=== PATIENT | female | born 1955 | race Caucasian/White ===

== ENCOUNTER → 2017-11-10 | Outpatient (CLI) | payer MEDICARE, MEDICAID ==
--- NOTE | 2017-11-11 08:23 | Diagnostic Imaging Report ---
Lumbar spine 3 views Indication: pain Comparison: none Findings: Advanced degenerative changes are noted with multilevel marginal osteophytic spurring and multilevel disc space loss of height, greatest at L5/S1 with moderate disc space loss of height at this level. No acute compression fracture or subluxation. Mild degenerative changes of SI joints are noted. Atherosclerosis is noted. Impression: No evidence of an acute compression fracture or subluxation. Advanced degenerative changes. Atherosclerotic vascular disease. In the setting of trauma, if clinical symptoms persist and there is continued concern for an occult fracture, follow up exams in 5-7 days is suggested.
== END ==
LOC: RAD 15:19
PROVIDERS: ATTEND Internal Medicine
DX: M47.816 Spondylosis without myelopathy or radiculopathy, lumbar region (principal); I70.8 Atherosclerosis of other arteries
CPT/HCPCS: 72100-TC